=== PATIENT | female | born 1955 | race Caucasian/White ===

== ENCOUNTER 2016-03-28 17:53 | Outpatient (CLI) ==
[2016-03-28 17:35] LABS: BASOPHILS % (AUTO) 0.4 % (0.0-3.0); EOSINOPHILS # (AUTO) 0.2 K/ul (0.0-0.7); EOSINOPHILS % (AUTO) 2.4 % (0.0-7.0); HEMATOCRIT 40.8 % (37.0-47.0); HEMOGLOBIN 13.4 g/dl (12.0-16.0); IMMATURE GRANULOCYTE % (AUTO) 0.3 % (0.0-5.0); LYMPHOCYTES % (AUTO) 26.5 (10.0-50.0); MEAN CORPUSCULAR HEMOGLOBIN 29.6 pg (27.0-31.0); MEAN CORPUSCULAR HGB CONC 32.8 (31.8-35.4); MEAN CORPUSCULAR VOLUME 90.3 fl (81.0-99.0); MONOCYTES # (AUTO) 0.6 K/uL (0.4-2.0); NEUTROPHILS # (AUTO) 4.6 K/ul (2.0-6.9); NEUTROPHILS % (AUTO) 62.4; PLATELET COUNT 240 10^3/uL (140-440); RED BLOOD COUNT 4.52 10^6/ul (4.20-5.40); WHITE BLOOD COUNT 7.37 K/ul (4.6-10.2)
[2016-03-28 17:42] LABS: BILIRUBIN,URINE Negative (NEGATIVE); KETONES,URINE Negative (NEGATIVE); LEUKOCYTE ESTERASE ,URINE Negative (NEGATIVE); NITRITE,URINE Negative (NEGATIVE); PH,URINE 6.5 (5-9); PROTEIN,URINE Negative (NEGATIVE); URINE, BLOOD Trace-intact (NEGATIVE)
[2016-03-28 18:02] LABS: ADD URINE MICROSCOPIC YES
[2016-03-28 18:14] LABS: ALBUMIN 3.8 g/dL (3.4-5.0); ALBUMIN/GLOBULIN RATIO 1.23; ANION GAP 14.1; BILIRUBIN,TOTAL 0.3 mg/dL (0.00-1.20); BUN/CREATININE RATIO 26.25; CALCIUM 9.2 mg/dL (8.2-10.2); CHOL/HDL RATIO 4.4 (4.5-5.5); CREATININE 0.8 mg/dL (0.60-1.30); POTASSIUM 4.1 mmol/L (3.5-5.10); TOTAL PROTEIN 6.9 g/dL (5.8-8.1)
== END 2016-03-28 17:54 | disposition home or self-care (01) ==
LOC: LAB 17:53
PROVIDERS: ATTEND General Practice
DX: Z00.00 Encounter for general adult medical examination without abnormal findings (principal)
CPT/HCPCS: 36415; 80053; 80061; 81001; 84443; 85025

== ENCOUNTER 2016-04-02 12:44 | Outpatient (CLI) ==
--- NOTE | 2016-04-04 08:42 | MAMMO ---
EXAM: Digital screening mammogram HISTORY: Screening mammogram COMPARISON: Screening mammogram 01/03/2014 FINDINGS: Bilateral CC and MLO views of the breasts were performed digitally and demonstrate scatte red fibroglandular breast density (25 - 50%). There is a nodular density in the right upper outer br east approximately 3.7 cm from the nipple measuring 0.5 cm in diameter. No additional abnormality o f the left breast is identified. IMPRESSION: Nodular density in the right upper outer breast RECOMMENDATION: Diagnostic right breast mammogram and potential ultrasound BIRADS category 0: Needs further evaluation
== END 2016-04-02 12:45 | disposition home or self-care (01) ==
LOC: RAD 12:44
PROVIDERS: ATTEND General Practice
DX: Z12.31 Encounter for screening mammogram for malignant neoplasm of breast (principal)

== ENCOUNTER 2016-04-07 09:38 | Outpatient (CLI) | payer OTHER ==
--- NOTE | 2016-04-07 10:38 | US ---
EXAM: Right breast diagnostic mammogram and ultrasound HISTORY: Other abnormal and inconclusive findings on diagnostic imaging of breast COMPARISON: Mammogram 04/04/2014 FINDINGS: Spot compression CC and MLO views right breast were performed. An asymmetry in the rig ht superior lateral breast persists, approximately 4 cm from the nipple. Ultrasound right breast was performed from the 9 o'clock through 12 o'clock position. No sonographi c finding in the region of the mammographic abnormality. There is a 0.5 x 0.4 x 0.5 cm normal appea ring lymph node at the 9 o'clock position and 5 - 6 cm from the nipple, though this does not appear to correspond with the mammographic asymmetry. IMPRESSION: 1. Mammographic asymmetry without sonographic correlate. Follow-up diagnostic mammogram is recomme nded in 6 months for reevaluation. 2. Benign right mammary lymph node. BIRADS category 3, probably benign
== END 2016-04-07 09:39 | disposition home or self-care (01) ==
LOC: RAD 09:38
PROVIDERS: ATTEND General Practice
DX: R92.8 Other abnormal and inconclusive findings on diagnostic imaging of breast (principal); N63 Unspecified lump in breast

== ENCOUNTER 2016-11-14 08:51 | Outpatient (CLI) ==
--- NOTE | 2016-11-14 09:21 | MAMMO ---
EXAM: Digital diagnostic right mammogram HISTORY: Other specified disorders of breast, mammographic asymmetry COMPARISON: 04/07/2016 FINDINGS: Digital MLO and CC views of the right and left breast were performed. Computer aided de tection was utilized. There are scattered fibroglandular densities. There is a stable asymmetry in the right upper outer breast. IMPRESSION: Stable asymmetry in the right upper outer breast that is probably benign. A 6-month fo llow-up mammogram is recommended to ensure stability. BIRADS category 3, probably benign
== END 2016-11-14 08:52 | disposition home or self-care (01) ==
LOC: RAD 08:51
PROVIDERS: ATTEND General Practice
DX: N64.89 Other specified disorders of breast (principal)

== ENCOUNTER 2017-05-11 10:10 | Outpatient (CLI) ==
--- NOTE | 2017-05-11 11:08 | MAMMO ---
EXAM: Bilateral digital diagnostic mammogram (2-D and 3-D) History: Follow-up right breast asymmetry. Comparison: Right breast mammogram 04/07/2016 Findings: MLO and CC views of bilateral breasts demonstrate scattered fibroglandular breast parenchy ma. CAD was reviewed by the radiologist. Tomosynthesis was performed. Stable small benign asymmetr y within the upper-outer quadrant of the right breast. No developing masses, no suspicious microcalc ifications and no architectural distortions. Impression: Benign mammogram. Recommend return to routine screening mammography schedule. BIRADS 2
== END 2017-05-11 10:11 | disposition home or self-care (01) ==
LOC: RAD 10:10
PROVIDERS: ATTEND General Practice
DX: N64.89 Other specified disorders of breast (principal); N63.0 Unspecified lump in unspecified breast
CPT/HCPCS: 77067

== ENCOUNTER 2018-04-11 16:41 | Emergency (ER) | payer OTHER ==
[2018-04-11] MEDS ORDERED: MORPHINE 2 MG/ML SYRINGE IM STA (16:47)
[2018-04-11] MEDS ORDERED: ZOFRAN 4 MG/2 ML IM STA (16:47)
[2018-04-11 16:48] VITALS: BP 151/92; TEMP 98.9; BMI 22.2
[2018-04-11] MEDS ORDERED: MORPHINE 4 MG/ML SYRINGE IM STA (16:48)
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
[2018-04-11] MEDS ORDERED: MOTRIN PO STA (17:46)
== END 2018-04-11 18:15 | disposition home or self-care (01) ==
LOC: ED 16:41
DX: S52.502A Unspecified fracture of the lower end of left radius, initial encounter for closed fracture (principal); V89.2XXA Person injured in unspecified motor-vehicle accident, traffic, initial encounter
CPT/HCPCS: 96372; 99283

== ENCOUNTER 2018-05-04 13:17 | Outpatient (CLI) ==
--- NOTE | 2018-05-04 14:10 | DEXA ---
EXAM: Bone densitometry. History: Osteoarthritis. Findings: Evaluation of the lumbar spine reveals a total bone mineral density of 1.116 grams per centimeter squ ared with T-score of negative 0.5. Evaluation of the left hip reveals a total bone mineral density of 0.832 grams per centimeter squared with T-score of negative 1.4. Evaluation of the right hip reveals a total bone mineral density of 0.864 grams per centimeter square d with T-score of 91.1. FRAX: 10-year probability for major osteoporotic fracture is 15.5% and 2.1% for hip fracture. Impression: 1. Normal bone mineral density of the lumbar spine. 2. Osteopenia of bilateral hips
== END 2018-05-04 13:18 | disposition home or self-care (01) ==
LOC: RAD 13:17
PROVIDERS: ATTEND General Practice
DX: M15.9 Polyosteoarthritis, unspecified (principal); M85.80 Other specified disorders of bone density and structure, unspecified site

== ENCOUNTER 2018-05-14 10:14 | Outpatient (CLI) ==
--- NOTE | 2018-05-17 09:37 | MAMMO ---
EXAM: Bilateral digital screening mammogram (2-D and 3-D) History: Screening Comparison: Bilateral mammogram 05/11/2017 Findings: MLO and CC views of bilateral breasts demonstrate scattered fibroglandular breast parenchy ma. CAD was reviewed by the radiologist. Tomosynthesis was performed. Stable small benign lymph no de within the upper-outer quadrant of the right breast. No developing masses, no suspicious microcal cifications and no architectural distortions. Impression: Benign stable mammogram. Recommend followup routine screening mammography in 1 year. BIRADS 2, benign
== END 2018-05-14 10:15 | disposition home or self-care (01) ==
LOC: RAD 10:14
PROVIDERS: ATTEND General Practice
DX: Z12.31 Encounter for screening mammogram for malignant neoplasm of breast (principal)

== ENCOUNTER 2018-11-16 07:27 | Outpatient (CLI) | END 2018-11-16 07:28 | disposition home or self-care (01) | LOC: LAB 07:27 | PROVIDERS: ATTEND General Practice | DX: N63.0 Unspecified lump in unspecified breast (principal); Z00.00 Encounter for general adult medical examination without abnormal findings | CPT/HCPCS: 36415; 80053; 80061; 81001; 85025; 87086 ==